=== PATIENT | female | born 1960 | race Caucasian/White ===

== ENCOUNTER 2017-11-12 05:01 | Inpatient (IN) | payer OTHER ==
[2017-11-12] VITALS (41 sets, daily range): BP systolic 80–146; BP diastolic 46–115
[~2017-11-12] VITALS: Ht 170.2 cm; Wt 80.7 kg
[~2017-11-12 05:01] MED LIST: LORA-259 PO; MEGE20TA PO
--- NOTE | 2017-11-12 05:01 | NUR ---
TO BED 9 BIB PARAMEDICS C/O SOB, ON CPAP BY EMS, RHONCHI HEARD BILATERALLY ON AUSCULTATION. PT AAOX4, VERY ANXIOUS, DIAPHORETIC. PT O2 SAT 82% ON CPAP BY EMS. RT AT BEDSIDE TO PLACE PT ON CPAP. PLACE PT ON CARDIAC MONITORING, CONTINUOUS POX. 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 ER MD AT BESIDE TO EVAL PT WITH ORDERS RECEIVED.
--- NOTE | 2017-11-12 05:05 | NUR ---
RT PLACE PT ON BIPAP 18/5, RATE-14, FIO2-100%. WILL CONTINUE TO MONITOR PT CLOSELY.
[2017-11-12] MEDS ORDERED: methylPREDNISolone SOD SUCC 125 MG/2ML VIAL ONE (05:06)
[2017-11-12] MEDS ORDERED: methylPREDNISolone SOD SUCC 125 MG/2ML VIAL IV ONE (05:30)
[2017-11-12 05:31] LABS: BASOPHILS # (AUTO) 0.1 /CMM (0.0-0.2); BASOPHILS % (AUTO) 0.5 % (0.0-2.0); EOSINOPHILS % (AUTO) 1.4 % (0.0-6.0); HEMATOCRIT 49 % (33-45); HEMOGLOBIN 15.7 g/dL (11.5-14.8); LYMPHOCYTES # (AUTO) 8.7 /CMM (0.8-4.8); LYMPHOCYTES % (AUTO) 29.3 % (20.0-44.0); MEAN CORPUSCULAR HEMOGLOBIN 30 PG (26.0-33.0); MEAN CORPUSCULAR HGB CONC 32 g/dl (31.0-36.0); MEAN CORPUSCULAR VOLUME 92 fL (82-100); MONOCYTES # (AUTO) 0.8 /CMM (0.1-1.30); MONOCYTES % (AUTO) 2.7 % (2.0-12.0); NEUTROPHILS # (AUTO) 19.6 /CMM (1.8-8.9); NEUTROPHILS % (AUTO) 66.1 % (43.0-81.0); PLATELET COUNT (AUTO) 388 /CMM (150-450); RED BLOOD CELL COUNT(AUTO) 5.27 MIL/uL (4.0-5.2); WHITE BLOOD COUNT (AUTO) 29.6 K/uL (4.3-11.0)
--- NOTE | 2017-11-12 05:41 | NUR ---
PT SON AT BEDSIDE.
[2017-11-12 05:42] LABS: CALCIUM, SERUM 8.7 mg/dL (8.5-10.1); CARBON DIOXIDE 23 mmol/L (21-32); CHLORIDE 106 mmol/L (98-107); CREATININE 0.8 mg/dL (0.6-1.3); GLUCOSE 183 mg/dL (74-106); POTASSIUM 4.6 mmol/L (3.5-5.1); SODIUM SERUM 140 mmol/L (136-145); UREA NITROGEN, BLOOD 16 mg/dL (7-18)
[2017-11-12 05:44] LABS: INR 0.9 (0.87-1.13)
[2017-11-12 05:46] LABS: BAND % (MANUAL) 5 % (0.0-5.0); EOSINOPHILS % (MANUAL) 2 % (0-4); LYMPHOCYTES % (MANUAL) 28 % (16-48); MONOCYTES % (MANUAL) 3 % (0-11.0); NEUTROPHILS % (MANUAL) 62 (42-76)
[2017-11-12 05:50] LABS: TROPONIN I < 0.017 ng/mL (0.00-0.056)
[2017-11-12 05:55] LABS: ALANINE AMINOTRANSFERASE 41 U/L (12-78); ALBUMIN 3.8 g/dL (3.4-5.0); ALKALINE PHOSPHATASE 99 U/L (46-116); ASPARTATE AMINOTRANSFERASE 40 U/L (15-37); B-TYPE NATRIURETIC PEPTIDE 267 PG/ML (0-125); BILIRUBIN,DIRECT 0.1 mg/dL (0.0-0.2); BILIRUBIN,TOTAL 0.4 mg/dL (0.2-1.0); TOTAL PROTEIN, SERUM 7.7 g/dL (6.4-8.2)
--- NOTE | 2017-11-12 06:05 | NUR ---
PT TOLERATING CURRENT BIPAP SETTINGS AT THIS TIME. PT SON REMAINS AT BEDSIDE. WILL CONTINUE TO MONITOR PT CLOSELY.
--- NOTE | 2017-11-12 06:07 | NUR ---
[facility] CALLED.
--- NOTE | 2017-11-12 06:10 | NUR ---
[facility] DOCTOR TALKING TO DR. GOFF.
[2017-11-12 06:14] LABS: ABG BASE EXCESS -4.8 mmol/L; ABG OXYGEN SATURATION 98.8 % (92.0-98.5); ABG PCO2 34.9 mmHg (35.0-45.0); ABG PH 7.368 (7.350-7.450); ABG PO2 248.3 mmHg (75.0-100.0); AaDO2 285.5 mmHg; COHb 1.2 % (0.5-1.5); MetHb 0.6 % (0.0-1.5); PEEP,BG 5 cm H2O; SITE, ABG Right Radial; VENT MODE, BG BIPAP
[2017-11-12] MEDS ORDERED: AZTREONAM 1 G in IV NS 0.9% 100 ML IV STA (06:17)
[2017-11-12] MEDS ORDERED: LEVOFLOXACIN 750 MG /D5W 150ML 750 MG in PREMIX 1 EA IV STA (06:17)
[2017-11-12] MEDS ORDERED: AZTREONAM 1 G VIAL ONE (06:21)
[2017-11-12] MEDS ORDERED: IV NS 0.9% 1,000 ML IV PRN (06:38)
--- NOTE | 2017-11-12 06:46 | NUR ---
REPORT CALLED TO [facility] TECHNICIANBRENNON WALTON. WILL TRANSPORT PT VIA ACLS PROTOCOL.
--- NOTE | 2017-11-12 06:46 | NUR ---
LEVAQUIN 750MG IVPB ENDORSED TO [employer] CUST[employer]ER SERVICE CLERK ISABELLE.
[2017-11-12] MEDS ORDERED: IPRATROPIUM NEB FS 0.5 MG/2.5 ML AMPUL.NEB NEB PRN (07:00)
[2017-11-12] MEDS ORDERED: ZOLPIDEM TARTRATE 5 MG TABLET PO PRN (07:00)
[2017-11-12] MEDS ORDERED: ACETAMINOPHEN 325 MG TABLET PO PRN (07:00)
[2017-11-12] MEDS ORDERED: MAG HYDROX/AL HYDROX/SIMETH 30 ML UDC PO PRN (07:00)
[2017-11-12] MEDS ORDERED: ONDANSETRON HCL/PF 4 MG/2 ML VIAL IVP PRN (07:00)
[2017-11-12] MEDS ORDERED: Z GUARD REMEDY 2 OZ OINT TP PRN (07:00)
[2017-11-12] MEDS ORDERED: MAGNESIUM HYDROXIDE 30 ML UDC PO PRN (07:00)
[2017-11-12] MEDS ORDERED: ALBUTEROL FS 2.5 MG/3 ML VIAL.NEB NEB PRN (07:00)
[2017-11-12] MEDS ORDERED: HYDROCODONE/APAP 5/325MG 1 EACH TABLET PO PRN (07:00)
--- NOTE | 2017-11-12 07:08 | NUR ---
PT TRANSP TO ICU. STABLE CONDITION. VSS.
--- NOTE | 2017-11-12 07:11 | NUR ---
Rt note Transferred pt from ER to ICU, in stable condition via NRB mask, set up bipap in ICU, pt was placed with stable V/S.
[2017-11-12] MEDS ORDERED: ENOXAPARIN SODIUM 40 MG/0.4 ML DISP.SYRIN SQ SCH ×2 (07:30→09:00)
--- NOTE | 2017-11-12 08:26 | NUR ---
received pt from day shift, s/p CHF, ResF, a/o x4, follows commands, SR, off of Bipap, on 3L NC now, sat well, lungs partially congested, no edema, NPO, no BM, urinates in bedpan, v/s stable, no chest pain verbalized, pt turns and repositions by himself.
[2017-11-12 08:36] LABS: MAGNESIUM 1.9 mg/dL (1.8-2.4)
[2017-11-12 08:43] LABS: TROPONIN I 0.105 ng/mL (0.00-0.056)
[2017-11-12 08:49] LABS: THYROID STIMULATING HORMONE 1.12 uIU/mL (0.358-3.74)
[2017-11-12] MEDS ORDERED: DEXTROSE 50%-WATER 50 ML DISP.SYRIN IV PRN (09:00)
[2017-11-12] MEDS ORDERED: ATORVASTATIN 40 MG TABLET PO SCH (09:00)
[2017-11-12] MEDS ORDERED: PANTOPRAZOLE 40 MG VIAL IV SCH (09:00)
[2017-11-12] MEDS ORDERED: ASPIRIN 81 MG TAB.CHEW PO SCH (09:00)
[2017-11-12] MEDS ORDERED: CEFTRIAXONE 1 G in IV NS 0.9% 50 ML IV SCH (09:00)
[2017-11-12] MEDS ORDERED: PANTOPRAZOLE 40 MG TABLET.DR PO SCH (09:00)
[2017-11-12] MEDS: methylPREDNISolone SOD SUCC 40 MG/ML VIAL IV SCH ×2 (09:14→12:27)
[2017-11-12] MEDS ORDERED: LEVOFLOXACIN 750 MG /D5W 150ML 750 MG in PREMIX 1 EA IV SCH (10:00)
[2017-11-12] MEDS ORDERED: ENOXAPARIN SODIUM 40 MG/0.4 ML DISP.SYRIN SQ STA (10:15)
[2017-11-12] MEDS ORDERED: NTG 50 MG/D5W250 ML BOTTL 250 ML IV PRN (10:30)
--- NOTE | 2017-11-12 10:40 | NUR ---
pt c/o chest pain, MD notified, ECG done, pt started on nitro drip pt seen by Dr Chaney and Dr Choudhury.
[2017-11-12] MEDS: INSULIN REGULAR, HUMAN 100 UNIT/ML 3 ML VIAL SQ PRN ×2 (11:21→17:30)
[2017-11-12] MEDS: BLOOD SUGAR DIAGNOSTIC 1 EACH STRIP IN SCH ×2 (11:22→17:31)
--- NOTE | 2017-11-12 12:23 | NUR ---
pt is resting in the bed, a/o x4, SR, on nitro drip at 14mcg/min, v/s stable, verbalized less chest pain 3/10, son at the bedside.
[2017-11-12] MEDS ORDERED: MORPHINE SULFATE INJ 2 MG/ML DISP.SYRIN IV PRN (14:30)
[2017-11-12] MEDS ORDERED: ASPI-1169 PO (15:28)
[2017-11-12] MEDS ORDERED: Morphine Sulfate Inj IV (15:28)
[2017-11-12] MEDS ORDERED: [UNRECOGNIZED DRUG - CODE] IV (15:28)
[2017-11-12] MEDS ORDERED: ATOR40TA PO (15:28)
[2017-11-12] MEDS ORDERED: methylPREDNISolone SOD SUCC IV (15:28)
--- NOTE | 2017-11-12 16:17 | NUR ---
pt is resting in the bed, a/o x4, SR, on nitro drip at 17mcg, c/o L chest pain 6/10 morphine 1mg ivp given, v/s stable, urinate in bedpan, no BM, family at the bedside, awaiting transfer to [place].
--- NOTE | 2017-11-12 18:43 | NUR ---
pt transferred to [facility] by paramedics, report given to [place] nurse Lauri, discharge instruction, information package and belongings given to the patient, pt's v/s stable, still on nitro drip at 17mcg, chest pain 3.
[2017-11-12] MEDS ORDERED: ENOXAPARIN SODIUM 80 MG/0.8 ML DISP.SYRIN SQ SCH (21:00)
== END 2017-11-12 18:43 | disposition short-term general hospital (02) | DRG 871 ==
LOC: ER 05:02 → ICU 06:10
PROVIDERS: ADMIT Hospitalist; ATTEND Hospitalist
PROC: 5A09357 Assistance with Respiratory Ventilation, Less than 24 Consecutive Hours, Continuous Positive Airway Pressure (ICD-10-PCS; principal; 2017-11-12)
DX: A41.9 Sepsis, unspecified organism (principal); J18.9 Pneumonia, unspecified organism; J96.01 Acute respiratory failure with hypoxia; I50.31 Acute diastolic (congestive) heart failure; J44.1 Chronic obstructive pulmonary disease with (acute) exacerbation; E87.2 Acidosis; J44.0 Chronic obstructive pulmonary disease with (acute) lower respiratory infection; E11.9 Type 2 diabetes mellitus without complications; Z91.14 Patient's other noncompliance with medication regimen; F17.200 Nicotine dependence, unspecified, uncomplicated; F41.9 Anxiety disorder, unspecified; I11.0 Hypertensive heart disease with heart failure; G47.33 Obstructive sleep apnea (adult) (pediatric); Z68.27 Body mass index [BMI] 27.0-27.9, adult; E66.9 Obesity, unspecified; I44.7 Left bundle-branch block, unspecified; R65.20 Severe sepsis without septic shock
CPT/HCPCS: 36415; 36600; 71045-TC; 80048-TC; 80061-TC; 80076-TC; 82306; 82962-TC; 83605-TC; 83735-TC; 83880; 84100-TC; 84439-TC; 84443-TC; 84484-TC; 85025-TC; 85730-TC; 87040-TC; 87081-TC; 93307-TC; A4216; A4606; J0696; J1650; J1815; J1956; J2270; J2920; J2930; J3490; J7030; Z7610